=== PATIENT | male | born 2000 ===

== ENCOUNTER 2018-04-13 02:30 | Emergency (ER) | payer OTHER ==
[~2018-04-13] VITALS: Ht 185.4 cm; Wt 104.3 kg
== END 2018-04-13 03:37 | disposition home or self-care (01) ==
LOC: ED 02:30
DX: S61.211A Laceration without foreign body of left index finger without damage to nail, initial encounter (principal); W26.0XXA Contact with knife, initial encounter; Y99.0 Civilian activity done for income or pay
CPT/HCPCS: 90471; 90715; 99283-25